=== PATIENT | male | born 1985 | race Two or more races ===

== ENCOUNTER 2019-09-25 21:14 | Emergency (ER) | payer OTHER ==
[2019-09-25 21:25] VITALS: RESP 18; TEMP 98.4
--- NOTE | 2019-09-25 21:51 | ED ---
General Adult HPI - General Chief complaint: Fall Stated complaint: L Leg Injury Time Seen by Provider: 09/25/19 21:29 Source: patient Mode of arrival: ambulatory Limitations: no limitations - History of Present Illness Initial comments: 34 old male patient presents to the emergency department today for evaluation of left leg and foot pain as well as low back pain after experiencing a fall. Patient states that he had put a ladder up against a tree branch, states he is not 8 feet off the ground the ladder gave out, states that he grabbed a branch when it broke causing him to fall. States he landed on his left foot and then onto his back. States his back did hit the ladder. Patient states he is having low back pain around his tailbone. States he is having left ankle pain and left proximal lower leg pain. Patient denies any pain radiating from his back. Denies saddle anesthesia or loss of bowel or bladder control. Denies numbness or tingling to the lower extremities. He denies hitting his head or losing consciousness. Denies any neck pain. Patient denies any chest pain, shortness of breath, dizziness, weakness, abdominal pain, nausea, vomiting, or difficulties with bowel movements or urination. - Related Data Allergies Allergy/AdvReac Type Severity Reaction Status Date / Time No Known Allergies Allergy Verified 09/25/19 21:25 Review of Systems ROS Statement: Those systems with pertinent positive or pertinent negative responses have been documented in the HPI. ROS Other: All systems not noted in ROS Statement are negative. Past Medical History History of Any Multi-Drug Resistant Organisms: None Reported Additional Past Surgical History / Comment(s): skull fractures and partial foot amputation Past Psychological History: No Psychological Hx Reported Smoking Status: Vaper Past Alcohol Use History: Occasional Past Drug Use History: None Reported General Exam Limitations: no limitations General appearance: alert, in no apparent distress, other (This is a well- developed, well-nourished adult male patient in no acute distress. Vital signs upon presentation are temperature 98.4F, pulse 93, respirations 18, blood pressure 135/81, pulse ox 94% on room air.) Head exam: Present: atraumatic, normocephalic, normal inspection Eye exam: Present: normal appearance, PERRL, EOMI. Absent: scleral icterus, conjunctival injection, periorbital swelling ENT exam: Present: normal exam, normal oropharynx, mucous membranes moist Neck exam: Present: normal inspection, full ROM, other (Nontender, no step-off, no deformity to firm midline palpation of the posterior cervical spine. Full range of motion without pain or limitation.). Absent: tenderness, meningismus, lymphadenopathy Respiratory exam: Present: normal lung sounds bilaterally. Absent: respiratory distress, wheezes, rales, rhonchi, stridor Cardiovascular Exam: Present: regular rate, normal rhythm, normal heart sounds. Absent: systolic murmur, diastolic murmur, rubs, gallop, clicks GI/Abdominal exam: Present: soft, normal bowel sounds. Absent: distended, tenderness, guarding, rebound, rigid Extremities exam: Present: full ROM, tenderness (Over the medial and lateral malleolus on the left ankle. Proximal tib-fib tenderness.), normal capillary refill, other (Skin to the left lower extremity is pink, warm, dry. Cap refills less than 3 seconds. Pedal and posttibial pulses are 2+ and equal bilaterally). Absent: normal inspection, pedal edema, joint swelling, calf tenderness Back exam: Present: normal inspection, vertebral tenderness (Sacral vertebral tenderness) Neurological exam: Present: alert, oriented X3, CN II-XII intact Psychiatric exam: Present: normal affect, normal mood Skin exam: Present: warm, dry, intact, normal color. Absent: rash Course Vital Signs 09/25/19 09/25/19 21:18 23:00 Temperature 98.4 F Pulse Rate 93 75 Respiratory 18 18 Rate Blood Pressure 135/81 126/79 O2 Sat by Pulse 94 L 99 Oximetry Procedures - Orthopedic Splinting/Casting Injury #1 Side: left Lower Extremity Injury Location: short leg, ankle Lower Extremity Immobilizer: stirrup splint Additional Comments: Leg padded with web roll. Neurovascular status intact after splint application. skin to toes is pink, warm, and dry. Pt denies numbness or tingling to foot or toes. Medical Decision Making - Medical Decision Making 34 year-old male patient presents to the emergency department for evaluation of left leg and ankle pain as well as low back pain after falling 8 feet from a ladder. Physical examination did reveal bilateral malleolar tenderness, proximal tib-fib tenderness, and sacral tenderness. Neurovascular status was intact to the lower extremities. He has no concerning symptoms for cauda equina. Xray of the lumbosacral spine was negative. Xray of the tib fib showed medial malleolus fracture. Ankle redomonstrated medal malleolar fracture. Patient was placed in ankle stirrup splint. She is instructed to remain nonweightbearing. He is instructed to follow-up with supervisory training specialist for further evaluation as soon as possible. He is given prescription for pain medication. He is educated regarding rest, ice, elevation. Return parameters were discussed in detail. He verbalizes understanding and agrees with this plan - Radiology Data Radiology results: report reviewed, image reviewed 3 views of the left ankle are obtained. Report reviewed in its entirety. Im pression by Dr. Fry shows acute nondisplaced fracture of the medial malleolus to 4 views of the left tib-fib was obtained. Report is reviewed in its entirety. Impression by Dr. Fry shows nondisplaced medial malleolus fracture. Normal fibula. 5 views of the lumbosacral spine was obtained. Report was reviewed in its entirety. Impression by Dr. Fry shows negative lumbar spine exam. No fracture. Disposition Clinical Impression: Fracture of medial malleolus, left, closed, Acute low back pain Disposition: HOME SELF-CARE Condition: Good Instructions (If sedation given, give patient instructions): Ankle Fracture (ED), Acute Low Back Pain (ED), Splint Care (ED) Additional Instructions: Rest, ice, elevate the left leg. Follow-up with supervisory training specialist for further evaluation as soon as possible, call Friday morning for an appointment. Take pain medications as directed. Return to the emergency department immediately for any new, worsening, or concerning symptoms. Is patient prescribed a controlled substance at d/c from ED?: No Referrals: Karsten Richard MD [STAFF PHYSICIAN] - 1-2 days Time of Disposition: 22:41
--- NOTE | 2019-09-25 22:04 | XR ---
EXAMINATION TYPE: XR ankle complete LT DATE OF EXAM: 09/25/2019 COMPARISON: NONE HISTORY: Fall. Pain. TECHNIQUE: 3 views FINDINGS: Ankle mortise is anatomic. There is nondisplaced transverse fracture through the medial mal leolus. There is no dislocation. Joint spaces are normal. Talus is intact. IMPRESSION: Acute nondisplaced fracture of the medial malleolus.
--- NOTE | 2019-09-25 22:06 | XR ---
EXAMINATION TYPE: XR tibia fibula LT DATE OF EXAM: 09/25/2019 COMPARISON: NONE HISTORY: Fall. Pain. TECHNIQUE: 4 views FINDINGS: The knee joint is intact. There is nondisplaced medial malleolus fracture at the ankle. The fibula appears intact. IMPRESSION: Nondisplaced medial malleolus fracture. Normal fibula.
--- NOTE | 2019-09-25 22:07 | XR ---
EXAMINATION TYPE: XR lumbosacral spine min 4V DATE OF EXAM: 09/25/2019 COMPARISON: NONE HISTORY: Fall. Pain. TECHNIQUE: 5 views FINDINGS: Lumbar vertebra have normal alignment. Disc spaces are normal. Posterior elements are intac t. Sacroiliac joints appear intact. IMPRESSION: Negative lumbar spine exam. No fracture.
[2019-09-25] MEDS ORDERED: IBUPROFEN 600 MG STARTER PACK 4 TAB BTL PO STA (22:40)
[2019-09-25] MEDS ORDERED: ACET/COD 300 MG/30 MG STARTER PACK 6 TAB BTL PO STA (22:40)
[2019-09-25 23:05] VITALS: BP 126/79; PULSE 75
== END 2019-09-25 23:10 | disposition home or self-care (01) ==
LOC: EC 21:14
DX: S82.55XA Nondisplaced fracture of medial malleolus of left tibia, initial encounter for closed fracture (principal); M54.5 Low back pain; F17.290 Nicotine dependence, other tobacco product, uncomplicated; W11.XXXA Fall on and from ladder, initial encounter
CPT/HCPCS: 29515; 72110; 99283

== ENCOUNTER 2019-09-28 06:50 | Day surgery (SDC) | payer OTHER ==
[2019-09-27 13:24] VITALS: BMI 25.7
--- NOTE | 2019-09-27 14:01 | HP ---
HISTORY AND PHYSICAL CHIEF COMPLAINT: Left ankle pain. 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 He fell approximately 8 feet from a ladder. He was seen in the emergency room and placed in a splint. He denied loss of consciousness. He is unable to put any weight on the left ankle since the injury. PAST MEDICAL HISTORY: Negative. PAST SURGICAL HISTORY: Significant for previous foot surgery. CURRENT MEDICATIONS: Tylenol No.3 and Motrin. ALLERGIES: He denies drug allergies. FAMILY HISTORY: Significant for cancer. SOCIAL HISTORY: Significant for current tobacco use in addition to social alcohol use. REVIEW OF SYSTEMS: Sixteen point review of systems otherwise reviewed and is noncontributory. PHYSICAL EXAMINATION: On examination, the patient is approximately 6 foot 1 inches, 195 pounds of mesomorphic habitus. HEENT: Exam is nonfocal. NECK: Supple. He has painless passive motion of the left hip. Straight leg raise is negative. He is nontender about the left knee and proximal fibula. On examination of his left ankle, the splint is intact. He is tender about the medial malleolus. No mid or forefoot tenderness is noted. His distal neurovascular exam appears intact in the left lower extremity. IMAGING: X-rays of the left ankle obtained from the hospital show a medial malleolar fracture with 1-2 mm displacement. The tibiofibular overlap appears to be maintained. IMPRESSION: Acute left medial malleolar ankle fracture. RECOMMENDATIONS: I talked to the patient at length regarding his condition and treatment options. He opts to proceed with surgery. We will plan to proceed with open reduction and internal fixation. We will likely perform that as an outpatient procedure. Risks and benefits were discussed at length in layman's terms. MMODL / IJN: [id number] /
[2019-09-28] MEDS ORDERED: LACTATED RINGERS 1,000 ML IV ONE (07:17)
[2019-09-28] MEDS ORDERED: ONDANSETRON 4 MG/2 ML VIAL ONE (07:44)
[2019-09-28] MEDS ORDERED: MIDAZOLAM 2 MG/2 ML VIAL IVP ONE ×2 (07:59→08:05)
[2019-09-28] MEDS ORDERED: fentaNYL (PF) 50 MCG/ML 2 ML AMP IVP ONE ×2 (07:59)
[2019-09-28] MEDS ORDERED: DEXAMETHASONE SOD PHOS (MDV) 100 MG/10 ML VIAL IVP ONE (08:00)
[2019-09-28] MEDS ORDERED: PROPOFOL 10 MG/ML 20 ML VIAL IV ONE (08:11)
[2019-09-28] MEDS ORDERED: SUCCINYLCHOLINE CHLORIDE 100 MG/5 ML SYR IV ONE (08:11)
[2019-09-28] MEDS ORDERED: DEXAMETHASONE SOD PHOSPHATE 4 MG/ML 1 ML VIAL ONE (08:11)
[2019-09-28] MEDS ORDERED: fentaNYL (PF) 50 MCG/ML 2 ML AMP ONE (08:11)
[2019-09-28] MEDS ORDERED: ROPIVACAINE 5 MG/ML 30 ML VIAL ONE (08:11)
[2019-09-28] MEDS ORDERED: LIDOCAINE 1% INJ 10MG/ML (20 ML MDV) ONE (08:11)
[2019-09-28] MEDS ORDERED: ceFAZolin 1,000 MG in SODIUM CHLORIDE 0.9% 1,000 ML IRRIGATION ONE (08:45)
--- NOTE | 2019-09-28 09:20 | FL ---
EXAMINATION TYPE: FL guidance operating room, XR ankle limited LT DATE OF EXAM: 09/28/2019 CLINICAL HISTORY: Left ankle fracture. TECHNIQUE: Fluoroscopy. Limited intraoperative views left ankle. COMPARISON: Left ankle x-ray 3 days ago.. FINDINGS: Fluoroscopic guidance was provided during open reduction and internal fixation procedure p erformed by Dr. Richard. A total of 10 seconds of fluoroscopic time was utilized during the procedure and two spot intraoperative images are acquired. Intraoperative images obtained show placement of 2 fixating screws through slightly displaced medial malleolus fracture. Satisfactory improved alignment is seen after reduction and fixation. IMPRESSION: As Above.
--- NOTE | 2019-09-28 09:23 | P.OP ---
Date of Procedure: 09/28/19 Preoperative Diagnosis: Left medial malleolar ankle fracturedisplaced Postoperative Diagnosis: Same Procedure(s) Performed: Open reduction and internal fixation left medial malleolar ankle fracture Implants: Arthrex partially threaded 4.0 mm x 44 mm cancellus screws 2 Anesthesia: re NGUYEN Surgeon: Karsten Richard Sewage Disposal Worker #1: Maico Perez Estimated Blood Loss (ml): 5 Pathology: none sent Condition: stable Disposition: PACU Indications for Procedure: The patient's a 34-year-old male presents after falling out of a tree injuring his left ankle. Upon evaluation he was noted to have a mildly displaced left medial malleolar ankle fracture. A discussion of the risks and benefits of operative intervention versus conservative measures made with patient. He opted proceed with surgery. Operative risks to include infection, neurovascular injury, development of blood clots, possible development nonunion/malunion and need for subsequent procedures was discussed. Informed consent was obtained. Operative Findings: As below Description of Procedure: The patient was brought to the operating room after placement of a block by anesthesia and was positioned supine on the table. After induction general anesthesia the left lower extremity was prepped and draped in normal fashion. The tourniquet was inflated to 270 mmHg. A 4 cm incision was then made centered over the medial malleolus. Skin was incised sharply. Subcu tissues were divided bluntly. Electrocautery was used for hemostasis. The fracture site was identified and cleaned of clot and debris. The periosteum was elevated and the fracture was then reduced. This is verified with fluoroscopy. 2 guidewires were then inserted in a parallel fashion. Again this is verified with fluoroscopy. A cannulated drill was used. A 4.0 mm x 44 mm partially threaded cancellus screws were then inserted over the guidewires. Good purchase obtained. The fracture site compressed nicely. This was verified with fluoroscopy on the AP, mortise, and lateral views. There appeared to be normal tibiofibular overlap. The wound was irrigated normal saline. The subcutaneous tissues reapproximated interrupted 3-0 Vicryl sutures. The skin was reprepped with 3-0 subcuticular Prolene suture. Steri-Strips were applied. A sterile dressing was applied in addition to a bulky splint. The tourniquet was deflated less than 40 minutes total tourniquet time. Patient was then awoken from general anesthesia and transferred to the recovery room in good condition. Blood loss was estimated at 5 mL. No complications were incurred. Sponge and needle counts were correct in the case.
[2019-09-28 09:32] VITALS: TEMP 97.3
[2019-09-28] MEDS: HYDROmorphone 1 MG/ML 1 ML SYRINGE IVP ONE ×2 (09:48→09:53)
[2019-09-28 10:48] VITALS: BP 109/68; PULSE 53; RESP 20
--- NOTE | 2019-09-28 11:04 | P.ANPRN ---
Procedure Note - Anesthesia - Nerve Block Performed Left Adductor Canal Single Time Out Performed: Yes Date of Procedure: 09/28/19 Procedure Start Time: 07:58 Procedure Stop Time: 08:09 Location of Patient: PreOp Indication: Acute Post-Operative Pain, Dx/Pain Location, Requested by Surgeon Specifically requested for management of pain by : Karsten Richard Sedation Type: Sedate with meaningful contact maintained Preparation: Sterile Prep Position: Supine Catheter: None Needle Types: Pajunk Needle Gauge: 20 Ultrasound used to visualize needle placement: Yes Ultrasound used to observe medication spread: Yes Injectate: 0.5% Ropivacaine (see comment for volume) Blood Aspirated: No Pain Paresthesia on Injection Noted: No Resistance on Injection: Normal Image Stored and Saved: Yes Events: Uneventful and Well Tolerated (15 cc 0.5% Ropivacaine 4mg dexamethasone)
--- NOTE | 2019-09-28 11:06 | P.ANPRN ---
Procedure Note - Anesthesia - Nerve Block Performed Left Popliteal Single Time Out Performed: Yes Date of Procedure: 09/28/19 Procedure Start Time: 07:58 Procedure Stop Time: 08:09 Location of Patient: PreOp Indication: Acute Post-Operative Pain, Dx/Pain Location Specifically requested for management of pain by DrMundo: Karsten Richard Sedation Type: Sedate with meaningful contact maintained Preparation: Sterile Prep Position: Prone Catheter: None Needle Types: Pajunk Needle Gauge: 20 Ultrasound used to visualize needle placement: Yes Ultrasound used to observe medication spread: Yes Injectate: 0.5% Ropivacaine (see comment for volume) Blood Aspirated: No Pain Paresthesia on Injection Noted: No Resistance on Injection: Normal Image Stored and Saved: Yes Events: Uneventful and Well Tolerated (15cc 0.5% Ropivacaine)
== END 2019-09-28 11:12 | disposition home or self-care (01) ==
LOC: OR 06:50
PROVIDERS: ATTEND Orthopaedic Surgery
DX: S82.52XA Displaced fracture of medial malleolus of left tibia, initial encounter for closed fracture (principal); F17.200 Nicotine dependence, unspecified, uncomplicated; Z98.890 Other specified postprocedural states; Z79.891 Long term (current) use of opiate analgesic; Z79.1 Long term (current) use of non-steroidal anti-inflammatories (NSAID); Z79.899 Other long term (current) drug therapy; Z80.9 Family history of malignant neoplasm, unspecified; W17.89XA Other fall from one level to another, initial encounter
CPT/HCPCS: 27766; 64447; 64450; 76942; 73600; C1713; J2250; J1100 ×2; J0690 ×2; J2405; J2001; J3010; J1170; J2795; J0330; J2704; 64445